=== PATIENT | female | born 1980 | race Caucasian/White ===

== ENCOUNTER 2016-12-06 13:07 | Emergency (ER) | payer OTHER ==
[~2016-12-06] VITALS: Ht 165.1 cm; Wt 81.6 kg
--- NOTE | 2016-12-06 14:31 | ED GENERAL ADULT ---
History of Present Illness General Chief Complaint: Nausea, Vomiting, Diarrhea Stated Complaint: VOMITING; EXTREMITY NUMBNESS Source: patient Exam Limitations: no limitations Vital Signs & Intake/Output Vital Signs & Intake/Output Vital Signs Date Time Temp Pulse Resp B/P Pulse O2 O2 Flow FiO2 Ox Delivery Rate 12/06 1702 97.6 76 15 150/86 100 Room Air Room Air 12/06 1527 97.5 92 18 119/77 100 Room Air 12/06 1448 Room Air Room Air 12/06 1321 97.8 97 16 160/95 97 Room Air Allergies Coded Allergies: latex (RASH 12/06/16) Triage Note: PT BIBA FROM HER CAR. PT WAS DRIVING HOME FROM WORK BECAUSE SHE HAD A STILES. PT STATES SHE VOMITED WHILE DRIVING AND THEN SHE BEGAN TO EXPERIENCE NUMBNESS IN HER EXTREMITY'S AND HER FACE. Triage Nurses Notes Reviewed? yes : No Patient currently breastfeeds: No HPI: 36 year old woman with past medical history of depression seen for evaluation of headache, nausea, vomiting, numbness/tingling, and muscle aches and pains. She works as a high school coordinator and went today in her normal state of health when she began to develop a throbbing frontal headache around 10AM. She developed associated nausea around 11:00am and had an abrupt episode of vomiting where she had to run out into the [place] with garbage can around 11:30AM. She left work to head home where she has an episode of vomiting in the car for which she reports another abrupt episode of vomiting for which she then decided to come to the [facility] for further evaluation. Currently she is more comfortable and admits to associated chills, mild chest discomfort, shortness of breath. She denies any fever, neck pain, photophobia, palpitations, abdominal pain, diarrhea. (MILA RANGEL MD) Reconcile Medications Ondansetron HCl 4 MG TABLET 1 TAB PO Q4P PRN NAUSEA (CHUCHO GANN,DOUGLAS Mathews) Past History Travel History Traveled to [place] past 21 day No Medical History Any Pertinent Medical History? see below for history Psychiatric: depression Surgical History Surgical History: non-contributory Psychosocial History What is your primary language [place] Tobacco Use: Never used ETOH Use: occasional use Illicit Drug Use: denies illicit drug use Family History Hx Contributory? Yes (MILA RANGEL MD) Review of Systems Review of Systems Constitutional: Reports: see HPI. (MILA RANGEL MD) Physical Exam Physical Exam General Appearance: well developed/nourished, alert, awake, mild distress Comments: General - well developed, well nourished young woman in mild distress HEENT - NCAT, PERRLA, EOMI, anicteric sclera, moist mucous membranes, neck FROM, no nuchal rigidity CVS - S1, S2 w/o m/g/r Resp - CTA bilaterally GI - Soft, nontender, nondistended, bowel sounds intact Neuro - Awake and Alert, CN II - XII grossly intact Ext - normal pulses, no cyanosis/clubbing/edema Core Measures ACS in differential dx? No CVA/TIA Diagnosis: No Severe Sepsis Present: No Septic Shock Present: No (MILA RANGEL MD) Progress Differential Diagnoses I considered the following diagnoses in my evaluation of the patient: gastroenteritis, influenza Plan of Care: Orders Procedure Date/time Status RAPID VIRAL INFLUENZA A 12/06 1424 Complete URINALYSIS 12/06 142 Complete COMPREHENSIVE METABOLIC PANEL 12/06 142 Complete CBC WITHOUT DIFFERENTIAL 12/06 142 Complete Laboratory Tests 12/06/16 1541: Urine Color YEL, Urine Clarity CLEAR, Urine pH 7.5, Ur Specific [place] 1.010, Urine Protein NEG, Urine Ketones TRACE H, Urine Nitrite NEG, Urine Bilirubin NEG, Urine Urobilinogen 0.2, Ur Leukocyte Esterase NEG, Ur Microscopic EXAM NOT REQUIRED, Urine Hemoglobin NEG, Urine Glucose NEG 12/06/16 1440: Anion Gap 13, Estimated GFR > 60, BUN/Creatinine Ratio 11.4, Glucose 106 H, Calcium 9.6, Total Bilirubin 0.6, AST 23, ALT 33, Alkaline Phosphatase 76, Total Protein 7.5, Albumin 4.5, Globulin 3.0, Albumin/Globulin Ratio 1.5, CBC w Diff NO MAN DIFF REQ, RBC 5.22, MCV 82.9, MCH 27.6, RDW 13.2, MPV 8.4, Gran % 90.9 H , Lymphocytes % 5.6 L, Monocytes % 2.8, Eosinophils % 0.1, Basophils % 0.6, Absolute Granulocytes 11.9 H, Absolute Lymphocytes 0.7 L, Absolute Monocytes 0.4, Absolute Eosinophils 0, Absolute Basophils 0.1, PUBS MCHC 33.3 Microbiology 12/06 1440 NASOPHARYN: Influenza Virus A & B Rapid Smear - COMP Initial ED EKG: none Comments: Given patients work environment with children and multiple sick contacts it is likely that patient is suffering an acute viral infectious process. Her abrupt symptoms of headache with associating nausea and vomiting with numbness/tingling are concerning for an infective neurologic process but given her relatively benign neurologic exam it is unlikely patient is experiencing anything suggestive of a meningitis or encephalitis. Complete blood count demonstrated mild leukocytosis that is most likely reactive. Comprehensive metabolic panel was within normal limits. Urinalysis unremarkable. Rapid flu is negative for influenza. Patient was given intravenous normal saline and zofran/phenergan for nausea. (MILA RANGEL MD) Departure Departure Disposition: HOME OR SELF CARE Condition: Stable Clinical Impression Primary Impression: Acute gastritis Qualifiers: Gastritis type: unspecified gastritis Gastritis bleeding: without bleeding Qualified Code: K29.00 - Acute gastritis without bleeding Referrals: VANI CHAHAL MD (PCP/Family) Additional Instructions: Take Zofran as needed for your nausea. Follow-up with your primary care provider after discharge for further evaluation. Call 911 or return to the ED should your symptoms worsen. Departure Forms: Customer Survey General Discharge Information (MILA RANGEL MD) Departure Prescriptions: Current Visit Scripts Ondansetron HCl 1 TAB PO Q4P PRN NAUSEA #20 TAB Resident Co-Sign Statement Statement: ED Attending supervision documentation- [x] I saw and evaluated the patient. I have also reviewed all the pertinent lab results and diagnostic results. I agree with the findings and the plan of care as documented in the Resident's documentation. [] I have reviewed the ED Record and agree with the Resident's documentation. [] Additions or exceptions (if any) to the Resident's note and plan are summarized below: [] (CHUCHO GANN,DOUGLAS Mathews) Critical Care Note Critical Care Note Critical Care Time: non-applicable (MILA RANGEL MD)
[2016-12-06 15:02] LABS: ABSOLUTE BASOPHIL COUNT 0.1 /CUMM (0.0-0.2); ABSOLUTE EOSINOPHIL COUNT 0 /CUMM (0.0-0.7); ABSOLUTE GRANULOCYTE CT 11.9 /CUMM (1.4-6.5); ABSOLUTE LYMPH COUNT 0.7 /CUMM (1.2-3.4); ABSOLUTE MONOCYTE COUNT 0.4 /CUMM (0.10-0.60); BASOPHIL % 0.6 % (0.0-2.0); EOSINOPHIL % 0.1 % (0-5); HEMATOCRIT 43.3 % (37-47); MEAN CORPUSCULAR HGB 27.6 PG (27.0-31.0); MEAN CORPUSCULAR HGB CONC 33.3 G/DL (33.0-37.0); MEAN CORPUSCULAR VOLUME 82.9 FL (81.0-99.0); MEAN PLATELET VOLUME 8.4 FL (7.4-10.4); RBC DISTRIBUTION WIDTH 13.2 % (11.5-14.5); RED BLOOD CELL CT 5.22 /CUMM (4.20-5.40); WHITE BLOOD CELL COUNT 13.1 /CUMM (4.8-10.8)
[2016-12-06 15:19] LABS: GRANULOCYTE % 90.9 % (42.2-75.2); PLATELET COUNT 268 /CUMM (130-400)
[2016-12-06] MEDS ORDERED: ONDANSETRON HCL4 MG PO (16:55)
[2016-12-06 17:02] VITALS: BP 150/86
== END 2016-12-06 17:09 ==
LOC: ERH 13:07
PROVIDERS: Internal Medicine Interventional Cardiology
DX: K29.00 Acute gastritis without bleeding (principal); R51 Headache
CPT/HCPCS: 81003; 87804; 87804-59; 96374; 96375; J1885; J2405; J2550